=== PATIENT | male | born 1955 | race Caucasian/White ===

== ENCOUNTER → 2018-10-06 | Outpatient (CLI) | payer OTHER ==
[2018-10-06] VITALS (11 sets, daily range): BP systolic 90–126; BP diastolic 59–96
[~2018-10-06] MED LIST: DITROPAN XL10 MG PO; FLECAINIDE ACET50 M1 PO; GLYXAMBI 10 MG1 EACH; KLOR-CON 1010 MEQ PO; LASIX 20 MG TAB20 MG; LIPITOR10 MG PO; LISINOPRIL5 MG PO; LOPRESSOR50 PO; VITAMIN D1000 UNI1 PO; XARELTO20 MG PO
--- NOTE | ~2018-10-06 | CARD ---
[address] [address] CARDIAC CATH REPORT Name: SUKHWINDER MCKOY [id number] Admission: 10/06/18 Attend Phys: Sabino Weber MD Discharge: Date of : 53 Report #: [id number] THIS REPORT FOR: //name// CC: Kayleigh Weber PROCEDURE PERFORMED: Direct current cardioversion. INDICATIONS: Atrial fibrillation. HISTORY OF PRESENT ILLNESS: The patient is a 63-year-old man with recurrent atrial fibrillation who had been evaluated as an outpatient where he was noted to be in heart failure and in atrial fibrillation. CONSENT: The risks and benefits of the procedure were described to the patient in lay terms. The patient elects to proceed. DESCRIPTION OF PROCEDURE: After informed consent, a transesophageal echocardiogram was performed. Please see record for dosing of sedation. Heart rate, oxygenation and respiratory and blood pressures were monitored per protocol. After successful transesophageal echo, which demonstrated no intracardiac thrombus, the patient was successfully cardioverted to sinus rhythm with 200 joules, biphasic with heart rates in the high 40s to low 50s in a sinus rhythm. IMPRESSION: 1. Successful direct current cardioversion. 2. Atrial fibrillation. By: [id number] Weber MD, FACC /nt
--- NOTE | 2018-10-06 11:12 | EKG ---
[place] [address] ELECTROCARDIOGRAM REPORT Name: SUKHWINDER MCKOY Room: [facility]#: [id number] Admission: 10/06/18 Attend Phys: Sabino Weber MD Discharge: Date of : 53 Report #: [id number] THIS REPORT FOR: //name// [facility] Test Date: 2018-10-06 Test Time: 10:57:34 Pat Name: SUKHWINDER MCKOY Department: Room: Gender: M Registration Clerk: : 1955 Requested By: Sabino Weber Order Number: [id number] Reading MD: Sabino Weber Measurements Intervals [place] Rate: 111 P: FL: QRS: 17 QRSD: 107 T: 32 QT: 344 QTc: 468 Interpretive Statements Atrial fibrillation Consider anterolateral infarct No previous ECG available for comparison Electronically Signed On 10-06-2018 11:12:24 MARKETING STRATEGY ANALYST by Sabino Weber [email or web address] <ELECTRONICALLY SIGNED> By: Sabino Weber MD, [facility] 10/06/18 1112 1057 1057 Sabino Weber MD, FACC /EPI
--- NOTE | 2018-10-06 13:34 | TEE ---
[place] [address] TRANSESOPHAGEAL ECHOCARDIOGRAM Name: SUKHWINDER MCKOY Room: [facility]#: [id number] Admission: 10/06/18 Attend Phys: Sabino Weber, Discharge: Date of : 53 Date of Service: 10/06/18 1334 Report #: [id number] THIS REPORT FOR: //name// APPROVED REPORT Study performed: 10/06/2018 11:32:01 EXAM: Transesophageal Echocardiogram Patient Location: Out-Patient Status: routine BSA: 2.06 HR: 111 bpm BP: 117/89 mmHg Rhythm: Atrial Fibrillation Other Information Study Quality: Good Indications Atrial Fibrillation Echo Enhancing Agent Indication: Rule out Shunt Agent(s) / Amount(s) Used: Agitated Saline 10 cc Procedure After obtaining informed consent, patient underwent transesophageal echo in the [employer]. Type of Sedation : Conscious Sedation Sedation was administered by Audie Burnette RN. Sedation start time: 1137 Case end Time: 1150 Sedation was achieved intravenously with: Versed (3) Fentanyl (50) Transesophageal probe was inserted and advanced into esophagus without difficulty by Sabino Weber MD, FACC. Echo enhancement indication: R/O Septal defect. Echo enhancement agent administered: Agitated Saline The LEO was performed without complications. Synchronized Cardioversion acheived with 200 Joules after 1 attempt(s). Rhythm following Synchronized Cardioversion: Normal Sinus Rhythm Throughout the procedure, the blood pressure, pulse oximetry, cardiac rhythm, and rate were monitored. The patient tolerated the procedure without adverse effects. Recovery from conscious sedation was uneventful [place] [address] TRANSESOPHAGEAL ECHOCARDIOGRAM Name: SUKHWINDER MCKOY Room: [facility]#: [id number] Admission: 10/06/18 Attend Phys: Sabino Weber, Discharge: Date of : 53 Date of Service: 10/06/18 1334 Report #: [id number]. #[id number] Left Ventricle The left ventricle is normal size. There is normal LV segmental wall motion. There is normal left ventricular wall thickness. Left ventricular systolic function is mildly decreased. No left ventricle thrombus noted on this study. LVEF is 45-50%. Right Ventricle The right ventricle is normal size. The right ventricular systolic function is normal. Atria No thrombus is visualized in the left atrium or appendage. Interatrial septum is intact without evidence of ASD or PFO. The right atrium size is normal. Aortic Valve Mild aortic valve sclerosis. Mild aortic regurgitation. There is no aortic valvular stenosis. Mitral Valve The mitral valve is normal in structure. Trace mitral regurgitation. No evidence of mitral valve stenosis. Tricuspid Valve The tricuspid valve is normal in structure. There is no tricuspid valve regurgitation noted. Pulmonic Valve The pulmonary valve is normal in structure. There is no pulmonic valvular regurgitation. Great Vessels The aortic root is normal in size. Pericardium There is no pericardial effusion. <Conclusion> Left ventricular systolic function is mildly decreased.LVEF is 45-50%. There is normal LV segmental wall motion. No thrombus is visualized in the left [place] [address] TRANSESOPHAGEAL ECHOCARDIOGRAM Name: SUKHWINDER MCKOY Room: [facility]#: [id number] Admission: 10/06/18 Attend Phys: Sabino Weber, Discharge: Date of : 53 Date of Service: 10/06/181333 Report #: [id number] Interatrial septum is intact without evidence of ASD or PFO. Mild aortic valve sclerosis. There is no aortic valvular stenosis. Mild aortic regurgitation. <ELECTRONICALLY SIGNED> By: Sabino Weber MD, FACC 10/06/181333 33 33 Sabino Weber MD, FACC /INF
== END | disposition home or self-care (01) ==
LOC: M.CL 10:04
DX: I08.0 Rheumatic disorders of both mitral and aortic valves (principal); I48.91 Unspecified atrial fibrillation; Z88.0 Allergy status to penicillin; Z79.899 Other long term (current) drug therapy; Z79.01 Long term (current) use of anticoagulants